=== PATIENT | male | born 1990 | race African-American/Black ===

== ENCOUNTER 2018-01-21 09:53 | Emergency (ER) | payer SELFPAY ==
--- NOTE | 2018-01-21 10:44 | RAD ---
CHEST TWO VIEWS: 01/21/2018 HISTORY: Injury. Trauma. Pain. COMPARISON: None. FINDINGS: there is no pneumothorax, pleural fluid, focal consolidation, or alveolar edema. Heart and mediastin al contours are grossly unremarkable. IMPRESSION: No acute findings. POS: [facility]
== END 2018-01-21 10:40 | disposition home or self-care (01) ==
LOC: ERS 09:53
DX: S20.211A Contusion of right front wall of thorax, initial encounter (principal); M67.431 Ganglion, right wrist; F17.210 Nicotine dependence, cigarettes, uncomplicated; W50.0XXA Accidental hit or strike by another person, initial encounter; Y93.67 Activity, basketball
CPT/HCPCS: 71046

== ENCOUNTER 2018-11-16 10:49 | Emergency (ER) | payer SELFPAY | END 2018-11-16 14:09 | disposition home or self-care (01) | LOC: ERS 10:49 | DX: M25.532 Pain in left wrist (principal); F17.210 Nicotine dependence, cigarettes, uncomplicated | CPT/HCPCS: 99281 ==

== ENCOUNTER 2018-11-22 14:15 | Emergency (ER) | payer SELFPAY | END 2018-11-22 14:48 | disposition home or self-care (01) | LOC: ERS 14:15 | DX: K64.4 Residual hemorrhoidal skin tags (principal); F17.210 Nicotine dependence, cigarettes, uncomplicated | CPT/HCPCS: 99283 ==

== ENCOUNTER 2019-01-20 17:06 | Emergency (ER) | payer SELFPAY | END 2019-01-20 18:41 | disposition home or self-care (01) | LOC: ERS 17:06 | DX: K02.9 Dental caries, unspecified (principal); Z87.891 Personal history of nicotine dependence | CPT/HCPCS: 99282 ==

== ENCOUNTER 2019-04-16 06:57 | Emergency (ER) | payer SELFPAY ==
[2019-04-16 07:48] LABS: Mean Corpuscular HGB CONC 32.9 g/dL (32.0-36.0); Mean Corpuscular Hemoglobin 29.2 pg (27.0-31.0); Mean Corpuscular Volume 88.6 fL (78.0-98.0); Mean Platelet Volume 10.7 fL (7.4-10.4); Platelet Count 124 thou/uL (130-400); RBC Distribution Width 12.9 % (11.5-14.5); Red Blood Cell (RBC) Count 4.82 mill/uL (4.70-6.10); White Blood Cell (WBC) Count 3.2 thou/uL (4.8-10.8)
[2019-04-16 08:07] LABS: ALT (SGPT) 18 U/L (8-55); AST (SGOT) 13 U/L (5-34); Albumin 3.8 g/dL (3.5-5.0); Alkaline Phosphatase 51 U/L (40-150); Anion Gap 7 mmol/L (10-20); BUN (Urea Nitrogen) 6 mg/dL (8.9-20.6); Bilirubin, Total 0.4 mg/dL (0.2-1.2); Calc. Creatinine Clearance 0 mL/min (70-130); Calcium 8.8 mg/dL (7.8-10.44); Carbon Dioxide 30 mmol/L (22-29); Chloride 104 mmol/L (98-107); Estimated GFR-MDRD 90; Globulin 2.4 g/dL (2.4-3.5); Glucose 100 mg/dL (70-105); Lipase 21 U/L (8-78); Potassium 3.8 mmol/L (3.5-5.1); Protein, Total 6.2 g/dL (6.0-8.3); Sodium 137 mmol/L (136-145)
[2019-04-16 08:12] LABS: Large Platelets SLIGHT; Lymphocytes 58 % (21-51); MDiff Complete? YES; Monocytes 6 % (0-10); Neutrophil 36 % (42-75); Platelet Morphology Comment Appears Decreased
--- NOTE | 2019-04-16 08:46 | RAD ---
PORTABLE CHEST: Date 04/16/19 HISTORY: Chest pain, back pain. FINDINGS: Heart size is within normal limits for portable technique. Mediastinal structures are unremarkable. L ungs are clear of infiltrates. IMPRESSION: No active intrathoracic disease. POS: [facility]
--- NOTE | 2019-04-17 13:13 | EKG ---
Test Reason : Blood Pressure : / mmHG Vent. Rate : 058 BPM Atrial Rate : 058 BPM P-R Int : 162 ms QRS Dur : 084 ms QT Int : 382 ms P-R-T Axes : -06 000 040 degrees QTc Int : [address] elevation, consider early repolarization Confirmed by CAIN JONES DO ([id number]), news assignment editor MIKEY JACOBO ([id number]) on 04/17/2019 1:13:16 PM Referred By: Confirmed By:CAIN JONES DO
== END 2019-04-16 08:30 | disposition home or self-care (01) ==
LOC: ERS 06:57
DX: R07.9 Chest pain, unspecified (principal); F17.210 Nicotine dependence, cigarettes, uncomplicated
CPT/HCPCS: 36415; 71045; 80053; 83690; 84484; 85025; 93005

== ENCOUNTER 2021-06-04 07:39 | Emergency (ER) | payer SELFPAY | END 2021-06-04 08:13 | disposition home or self-care (01) | LOC: ERS 07:39 | DX: S39.012A Strain of muscle, fascia and tendon of lower back, initial encounter (principal); K64.4 Residual hemorrhoidal skin tags; Z87.891 Personal history of nicotine dependence; X58.XXXA Exposure to other specified factors, initial encounter | CPT/HCPCS: 99283 ==

== ENCOUNTER 2024-02-13 13:42 | Emergency (ER) | payer SELFPAY | END 2024-02-13 15:38 | disposition home or self-care (01) | LOC: ERS 13:42 | DX: K08.89 Other specified disorders of teeth and supporting structures (principal); Z87.891 Personal history of nicotine dependence | CPT/HCPCS: 99282 ==